=== PATIENT | female | born 1985 | race Hispanic/Latino ===

== ENCOUNTER 2020-09-23 05:45 | Emergency (ER) | payer SELFPAY ==
[2020-09-23] MEDS ORDERED: Ondansetron ODT 8 MG TAB ONE (05:59)
[2020-09-23 06:48] LABS: Bacteria/HPF 4+ HPF (None Seen); Bilirubin Negative (Negative); Blood, Urine 3+ (Negative); Clarity Turbid (Clear); Glucose, Urine (Dipstick) Greater than 1000 mg/dL (Negative); Ketone, Urine 10 mg/dL (Negative); Leukocyte Negative Leu/uL (Negative); Nitrite 1+ (Negative); Protein, Urine (Dipstick) 50 mg/dL (Neg-Trace); RBC/HPF 0-3 HPF (0-3); Specific Gravity, Urine 1.038 (1.002-1.036); Urobilinogen Normal mg/dL (Less than 2); pH, Urine 5.5 (5.0-9.0)
[2020-09-23 06:52] LABS: Pregnancy Test - Urine (BHCG) Negative (Negative); Pregu Control Background? CLEAR/WHITE (CLR/WHITE); Pregu Control Bar Appear? YES (CONTROL BAR); Specific Gravity 1.038 (1.002-1.036)
== END 2020-09-23 07:00 | disposition home or self-care (01) ==
LOC: ERS 05:45
DX: N39.0 Urinary tract infection, site not specified (principal); R11.2 Nausea with vomiting, unspecified; E11.9 Type 2 diabetes mellitus without complications; I10 Essential (primary) hypertension; J45.909 Unspecified asthma, uncomplicated; F32.9 Major depressive disorder, single episode, unspecified; F41.9 Anxiety disorder, unspecified; F17.210 Nicotine dependence, cigarettes, uncomplicated
CPT/HCPCS: 36416; 81003; 81015; 81025; 99284; Q0162

== ENCOUNTER 2020-10-08 09:02 | Emergency (ER) | payer SELFPAY ==
[2020-10-08] MEDS ORDERED: Dexamethasone 10 MG/ML VIAL ONE (09:49)
[2020-10-08] MEDS ORDERED: Albuterol Sulfate 2.5 mg/0.5 ml Neb ONE (09:49)
[2020-10-08] MEDS ORDERED: Albuterol 200 PUFF (6.7GM INHALER) ONE (09:50)
[2020-10-08 10:23] LABS: #Basophils 0.1 thou/uL (0.0-0.2); #Eosinphils 0.4 thou/uL (0.0-0.7); #Lymphocytes 2.8 thou/uL (1.20-3.40); #Monocytes 0.7 thou/uL (0.11-0.59); %Basophils 1.7 % (0.0-1.0); %Eosinophils 4.5 % (0.0-10.0); %Lymphocytes 30.6 % (21.0-51.0); %Monocytes 8.1 % (0.0-10.0); %Neutrophils 55.1 % (42.0-75.0); Hemoglobin 14.3 g/dL (12.0-16.0); Mean Corpuscular HGB CONC 34.5 g/dL (32.0-36.0); Mean Corpuscular Volume 92.7 fL (78.0-98.0); Mean Platelet Volume 7.9 fL (7.4-10.4); Platelet Count 286 thou/uL (130-400); RBC Distribution Width 11.1 % (11.5-14.5); Red Blood Cell (RBC) Count 4.49 mill/uL (4.20-5.40)
--- NOTE | 2020-10-08 10:35 | RAD ---
PORTABLE CHEST: Date: 10/08/2020 HISTORY: Shortness of breath and wheezing. Cough. FINDINGS: Heart size and mediastinum are within normal limits. The lungs are clear of any infiltrative process. IMPRESSION: No active intrathoracic disease. POS: ADAM
[2020-10-08 10:51] LABS: ALT (SGPT) 19 U/L (8-55); AST (SGOT) 15 U/L (5-34); Albumin 3.6 g/dL (3.5-5.0); Alkaline Phosphatase 92 U/L (40-110); Anion Gap 16 mmol/L (10-20); BUN (Urea Nitrogen) 10 mg/dL (7.0-18.7); Bilirubin, Total 0.2 mg/dL (0.2-1.2); Calc. Creatinine Clearance 0 mL/min (70-130); Calcium 8.2 mg/dL (7.8-10.44); Carbon Dioxide 21 mmol/L (22-29); Chloride 104 mmol/L (98-107); Globulin 2.7 g/dL (2.4-3.5); Glucose 373 mg/dL (70-105); Potassium 3.9 mmol/L (3.5-5.1); Protein, Total 6.3 g/dL (6.0-8.3); Sodium 137 mmol/L (136-145)
[2020-10-08 11:01] LABS: BHCG - Serum Negative (NEGATIVE); Pregs Control Background? CLEAR/WHITE (CLR/WHITE); Pregs Control Bar Appear? YES (CONTROL BAR)
[2020-10-08 13:06] LABS: SARS-CoV-2 MS2 Positive; SARS-CoV-2 N Gene Negative; SARS-CoV-2 S Gene Negative; SARS-CoV-2 by NAA Not Detected (NotDetected); SARS-CoV-2 orf1ab Negative
== END 2020-10-08 11:28 | disposition home or self-care (01) ==
LOC: ERS 09:02
DX: J45.901 Unspecified asthma with (acute) exacerbation (principal); M79.10 Myalgia, unspecified site; Z20.828 Contact with and (suspected) exposure to other viral communicable diseases; E11.9 Type 2 diabetes mellitus without complications; I10 Essential (primary) hypertension; J45.909 Unspecified asthma, uncomplicated; F17.210 Nicotine dependence, cigarettes, uncomplicated
CPT/HCPCS: 36415; 71045; 80053; 83880; 84484; 84703; 85025; 87635; 93005; J1100; J7611; U0003

== ENCOUNTER 2020-10-31 15:41 | Emergency (ER) | payer SELFPAY ==
--- NOTE | 2020-10-31 16:43 | RAD ---
Exam: XR Hand Rt 3 View STANDARD HISTORY: Swelling and bruising to right hand and fifth digit. COMPARISON: None FINDINGS: Minimal ulnar minus configuration is present. There is suggestion of irregularity along the volar aspect of the distal phalanx of the right small f rick. Cortex along the volar aspect distal phalanx is also not well delineated. Tiny osseous density is seen just volar to the base of the distal phalanx of the small finger. This could be relat ed to tiny avulsion this region. However the irregularity along the volar aspect of the finger is of uncertain etiology. This could be developmental in origin, but infection/osteomyelitis would be di fficult to entirely exclude. There is no displaced fracture or dislocation identified. IMPRESSION: Tiny osseous density base of the distal phalanx small finger which could represent a very tiny avulsi on type injury related to patient's recent trauma. However, there is also question of slight irregularity along the volar aspect of the distal phalanx small finger which could potentially be dev elopmental, but this is asymmetric compared to the remaining distal phalanges. Infection/osteomyelitis would be difficult to entirely exclude. MRI on a nonemergent basis is suggest ed for further evaluation with and without IV contrast. Findings discussed with [facility] on 10/31/2020 at 1639 hours.
[2020-10-31] MEDS ORDERED: Bupivacaine 0.5% 10 ML VIAL ONE (16:45)
[2020-10-31] MEDS ORDERED: Lidocaine 1% (PF) 30 ML VIAL ONE (16:45)
--- NOTE | 2020-10-31 16:45 | RAD ---
Right elbow 2 views HISTORY: Injury. FINDINGS: Radiocapitellar alignment is maintained. No displaced fracture or evidence of fluid distent ion of the joint capsule. IMPRESSION : No abnormalities are demonstrated.
--- NOTE | 2020-10-31 16:47 | RAD ---
Right wrist 3 views HISTORY: Right wrist pain. FINDINGS: Scaphoid waist and ulnar styloid are intact. No acute fracture, dislocation, or aggressive osseous erosions. IMPRESSION : No abnormalities are demonstrated.
--- NOTE | 2020-10-31 18:51 | RAD ---
Exam: XR Hand Rt 3 View STANDARD HISTORY: Closed reduction of small finger. COMPARISON: 10/31/2020 at 1554 hours FINDINGS: Again noted is a tiny osseous density seen at the volar aspect base of the distal phalanx small finge r suggestive of a tiny avulsion fracture. As noted on the prior exam, there is irregularity and suggestion of scalloping along the volar surface of the distal phalanx small finger. No other interva l change. IMPRESSION: 1. Findings suggestive of small avulsion injury volar aspect base of the distal phalanx right small f rick. 2. Irregularity and suggested scalloping along the volar aspect of the distal phalanx right small fin lonnie. While this could be developmental, a defined cortex in this region is not appreciated compared to the additional distal phalanges. Infection/osteomyelitis would be difficult to entirely exclude. F ollow-up MRI with and without IV contrast is recommended.
== END 2020-10-31 19:17 | disposition home or self-care (01) ==
LOC: ERS 15:41
DX: S62.636A Displaced fracture of distal phalanx of right little finger, initial encounter for closed fracture (principal); E11.9 Type 2 diabetes mellitus without complications; I10 Essential (primary) hypertension; J45.909 Unspecified asthma, uncomplicated; F17.210 Nicotine dependence, cigarettes, uncomplicated; W23.0XXA Caught, crushed, jammed, or pinched between moving objects, initial encounter
CPT/HCPCS: J2001; J3490

== ENCOUNTER 2020-12-21 20:15 | Emergency (ER) | payer SELFPAY ==
--- NOTE | 2020-12-21 20:58 | RAD ---
Portable frontal chest radiograph: 12/21/2020 COMPARISON: 10/08/2020 HISTORY: Cough, wheezing FINDINGS: Lungs are clear. Heart and mediastinal contours appear within normal limits. IMPRESSION: No acute findings.
[2020-12-21] MEDS ORDERED: Albuterol 200 PUFF (6.7GM INHALER) ONE (21:00)
[2020-12-21] MEDS ORDERED: Dexamethasone 4 mg/ml Vial ONE (21:29)
== END 2020-12-21 21:48 | disposition home or self-care (01) ==
LOC: ERS 20:15
DX: J45.901 Unspecified asthma with (acute) exacerbation (principal); E11.9 Type 2 diabetes mellitus without complications; I10 Essential (primary) hypertension; J45.909 Unspecified asthma, uncomplicated; F17.210 Nicotine dependence, cigarettes, uncomplicated
CPT/HCPCS: 71045; J1100

== ENCOUNTER 2021-01-08 13:10 | Emergency (ER) | payer SELFPAY | END 2021-01-08 13:50 | disposition left against medical advice (07) | LOC: ERS 13:10 | DX: Z53.21 Procedure and treatment not carried out due to patient leaving prior to being seen by health care provider (principal) ==

== ENCOUNTER 2021-04-02 13:43 | Emergency (ER) | payer SELFPAY ==
[2021-04-02 14:56] LABS: #Basophils 0.1 thou/uL (0.0-0.2); #Eosinphils 0.2 thou/uL (0.0-0.7); #Lymphocytes 4.1 thou/uL (1.20-3.40); #Monocytes 0.8 thou/uL (0.11-0.59); %Basophils 1.4 % (0.0-1.0); %Eosinophils 2.5 % (0.0-10.0); %Lymphocytes 44.6 % (21.0-51.0); %Monocytes 8.1 % (0.0-10.0); %Neutrophils 43.4 % (42.0-75.0); Hemoglobin 14.4 g/dL (12.0-16.0); Mean Corpuscular HGB CONC 33.7 g/dL (32.0-36.0); Mean Corpuscular Hemoglobin 31.1 pg (27.0-31.0); Mean Corpuscular Volume 92.2 fL (78.0-98.0); Mean Platelet Volume 7.8 fL (7.4-10.4); Platelet Count 281 thou/uL (130-400); RBC Distribution Width 11.8 % (11.5-14.5); Red Blood Cell (RBC) Count 4.63 mill/uL (4.20-5.40); White Blood Cell (WBC) Count 9.2 thou/uL (4.8-10.8)
[2021-04-02] MEDS ORDERED: Ketorolac Tromethamine 30 MG/ML VIAL ONE (14:57)
[2021-04-02] MEDS ORDERED: Lorazepam 1 MG TAB ONE (14:59)
[2021-04-02 15:12] LABS: Anion Gap 12 mmol/L (10-20); BUN (Urea Nitrogen) 9 mg/dL (7.0-18.7); Calc. Creatinine Clearance 0 mL/min (70-130); Calcium 8.4 mg/dL (7.8-10.44); Carbon Dioxide 22 mmol/L (22-29); Chloride 107 mmol/L (98-107); Glucose 229 mg/dL (70-105); Potassium 3.3 mmol/L (3.5-5.1); Sodium 138 mmol/L (136-145)
== END 2021-04-02 17:12 | disposition home or self-care (01) ==
LOC: ERS 13:43
DX: F43.0 Acute stress reaction (principal); F41.9 Anxiety disorder, unspecified; R51.9 Headache, unspecified; R42 Dizziness and giddiness; I10 Essential (primary) hypertension; E11.9 Type 2 diabetes mellitus without complications; J45.909 Unspecified asthma, uncomplicated; F17.210 Nicotine dependence, cigarettes, uncomplicated; Z87.442 Personal history of urinary calculi; Z79.4 Long term (current) use of insulin; Z79.51 Long term (current) use of inhaled steroids
CPT/HCPCS: 36415; 70450; 72100; 80048; 85025; 96372; J1885

== ENCOUNTER 2021-09-22 18:03 | Emergency (ER) | payer SELFPAY ==
[2021-09-22] MEDS ORDERED: Meclizine HCl 25 MG TAB ONE (18:37)
[2021-09-22 18:45] LABS: Bacteria/HPF None Seen HPF (None Seen); Bilirubin Negative (Negative); Blood, Urine Negative (Negative); Clarity Clear (Clear); Glucose, Urine (Dipstick) Greater than 1000 mg/dL (Negative); Ketone, Urine Negative (Negative); Leukocyte Negative Leu/uL (Negative); Nitrite 2+ (Negative); Protein, Urine (Dipstick) Negative (Neg-Trace); RBC/HPF 0-3 HPF (0-3); Urobilinogen Normal mg/dL (Less than 2); WBC/HPF 0-3 HPF (0-3)
[2021-09-22 18:48] LABS: Pregnancy Test - Urine (BHCG) Negative (Negative); Pregu Control Background? CLEAR/WHITE (CLR/WHITE); Pregu Control Bar Appear? YES (CONTROL BAR)
[2021-09-22 18:53] LABS: #Basophils 0.1 thou/uL (0.0-0.2); #Eosinphils 0.4 thou/uL (0.0-0.7); #Lymphocytes 2.7 thou/uL (1.20-3.40); #Monocytes 0.8 thou/uL (0.11-0.59); #Neutrophils 7.9 thou/uL (1.40-6.50); %Basophils 0.8 % (0.0-1.0); %Eosinophils 3.1 % (0.0-10.0); %Monocytes 6.6 % (0.0-10.0); %Neutrophils 66.5 % (42.0-75.0); Hemoglobin 15.6 g/dL (12.0-16.0); Mean Corpuscular HGB CONC 34.2 g/dL (32.0-36.0); Mean Corpuscular Hemoglobin 32.2 pg (27.0-31.0); Mean Corpuscular Volume 94.1 fL (78.0-98.0); Mean Platelet Volume 7.9 fL (7.4-10.4); Platelet Count 318 thou/uL (130-400); Red Blood Cell (RBC) Count 4.86 mill/uL (4.20-5.40); White Blood Cell (WBC) Count 11.9 thou/uL (4.8-10.8)
[2021-09-22 19:12] LABS: ALT (SGPT) 21 U/L (8-55); AST (SGOT) 26 U/L (5-34); Albumin 3.6 g/dL (3.5-5.0); Alkaline Phosphatase 70 U/L (40-110); Anion Gap 17 mmol/L (10-20); BUN (Urea Nitrogen) 10 mg/dL (7.0-18.7); Bilirubin, Total 0.2 mg/dL (0.2-1.2); Calc. Creatinine Clearance 0 mL/min (70-130); Calcium 8.1 mg/dL (7.8-10.44); Carbon Dioxide 16 mmol/L (22-29); Chloride 106 mmol/L (98-107); Globulin 2.9 g/dL (2.4-3.5); Glucose 431 mg/dL (70-105); Potassium 4.8 mmol/L (3.5-5.1); Protein, Total 6.5 g/dL (6.0-8.3); Sodium 134 mmol/L (136-145)
== END 2021-09-22 19:45 | disposition home or self-care (01) ==
LOC: ERS 18:03
DX: H81.391 Other peripheral vertigo, right ear (principal); E11.65 Type 2 diabetes mellitus with hyperglycemia; I10 Essential (primary) hypertension; F17.210 Nicotine dependence, cigarettes, uncomplicated; Z79.4 Long term (current) use of insulin
CPT/HCPCS: 36415; 71045; 80053; 81003; 81015; 81025; 84443; 84484; 85025; 93005

== ENCOUNTER 2021-10-24 16:48 | Emergency (ER) | payer SELFPAY ==
[2021-10-24 17:30] LABS: Hemoglobin 14.5 g/dL (12.0-16.0); Mean Corpuscular HGB CONC 35.6 g/dL (32.0-36.0); Mean Corpuscular Hemoglobin 33.6 pg (27.0-31.0); Mean Corpuscular Volume 94.3 fL (78.0-98.0); Mean Platelet Volume 7.3 fL (7.4-10.4); Platelet Count 268 thou/uL (130-400); RBC Distribution Width 11.6 % (11.5-14.5); Red Blood Cell (RBC) Count 4.31 mill/uL (4.20-5.40); White Blood Cell (WBC) Count 4.8 thou/uL (4.8-10.8)
[2021-10-24 17:44] LABS: Band 2 % (5-11); Eosinophils 3 % (0-10); Lymphocytes 32 % (21-51); MDiff Complete? YES; Monocytes 9 % (0-10); Neutrophil 54 % (42-75); Platelet Morphology Comment Appears Adequate; RBC Morphology Normal
[2021-10-24 17:49] LABS: ALT (SGPT) 29 U/L (8-55); AST (SGOT) 25 U/L (5-34); Alkaline Phosphatase 69 U/L (40-110); Anion Gap 12 mmol/L (10-20); BUN (Urea Nitrogen) 10 mg/dL (7.0-18.7); Bilirubin, Total 0.4 mg/dL (0.2-1.2); Calc. Creatinine Clearance 0 mL/min (70-130); Calcium 8.6 mg/dL (7.8-10.44); Carbon Dioxide 23 mmol/L (22-29); Chloride 107 mmol/L (98-107); Globulin 2.8 g/dL (2.4-3.5); Glucose 232 mg/dL (70-105); Potassium 3.8 mmol/L (3.5-5.1); Protein, Total 6.8 g/dL (6.0-8.3); Sodium 138 mmol/L (136-145)
[2021-10-24] MEDS ORDERED: Albuterol 200 PUFF (6.7GM INHALER) ONE (17:49)
[2021-10-24] MEDS ORDERED: Dexamethasone 10 MG/ML VIAL ONE (17:50)
== END 2021-10-24 18:08 | disposition home or self-care (01) ==
LOC: ERS 16:48
DX: J45.901 Unspecified asthma with (acute) exacerbation (principal); I10 Essential (primary) hypertension; E11.9 Type 2 diabetes mellitus without complications; F17.210 Nicotine dependence, cigarettes, uncomplicated
CPT/HCPCS: 36415; 71045; 80053; 83880; 84484; 85025; 93005; J1100

== ENCOUNTER 2023-02-07 15:53 | Emergency (ER) | payer SELFPAY ==
[2023-02-07] MEDS ORDERED: predniSONE 20 MG TAB ONE (16:37)
[2023-02-07] MEDS ORDERED: Ketorolac Tromethamine 30 MG/ML VIAL ONE (16:37)
[2023-02-07] MEDS ORDERED: Ipratropium/Albuterol 3 ML NEB ONE (16:37)
[2023-02-07 17:08] LABS: Bilirubin Negative (Negative); Blood, Urine Negative (Negative); Clarity Clear (Clear); Glucose, Urine (Dipstick) Greater than 1000 mg/dL (Negative); Ketone, Urine Negative (Negative); Leukocyte Negative Leu/uL (Negative); Nitrite Negative (Negative); Protein, Urine (Dipstick) Negative (Neg-Trace); Specific Gravity, Urine 1.028 (1.002-1.036); Urobilinogen Normal mg/dL (Less than 2)
== END 2023-02-07 17:59 | disposition home or self-care (01) ==
LOC: ERS 15:53
DX: J45.909 Unspecified asthma, uncomplicated (principal); G56.02 Carpal tunnel syndrome, left upper limb; E11.9 Type 2 diabetes mellitus without complications; I10 Essential (primary) hypertension
CPT/HCPCS: 81003; 96372; 99283; J1885; J7512; J7620